=== PATIENT | male | born 1955 | race African-American/Black ===

== ENCOUNTER → 2018-12-07 | Outpatient (CLI) | payer MEDICARE, BC ==
--- NOTE | 2018-12-07 16:26 | PCVCIMAG ---
EXAM: BILATERAL LOWER EXTREMITY ARTERIAL DUPLEX INDICATION: Peripheral Arterial Disease. Leg pain. Right great toe nonhealing ulcer. Previous left BKA.. FINDINGS: Right Leg: Common femoral and profunda femoral arteries are patent. Superficial femoral artery and popliteal artery are patent. Occlusion of the distal crow posterior tibial artery. The anterior tibial and peroneal arteries are patent. Mild/moderate stenosis in the dorsalis pedis. Left Leg: Common femoral and profunda femoral arteries are patent. Superficial femoral and popliteal artery patent. Note is made of below-knee amputation. IMPRESSION: Occlusion of the distal crow right posterior tibial artery. Mild/moderate stenosis right dorsalis pedis. LOC:[id number]
== END | disposition home or self-care (01) ==
LOC: PCVCIMAG 14:20
PROVIDERS: ATTEND Emergency Medicine
DX: I73.9 Peripheral vascular disease, unspecified (principal); T14.8XXA Other injury of unspecified body region, initial encounter; X58.XXXA Exposure to other specified factors, initial encounter; Y93.89 Activity, other specified; Y92.89 Other specified places as the place of occurrence of the external cause; Y99.8 Other external cause status
CPT/HCPCS: 93925